=== PATIENT | female | born 1975 | race Two or more races ===

== ENCOUNTER → 2024-10-06 | Outpatient (CLI) | payer MEDICAID, SELFPAY ==
--- NOTE | 2024-10-06 08:45 | XR_ITS ---
Examination: Diagnostic digital mammography, bilateral Computer aided detection 3-D breast Tomosynthesis, bilateral Date and time of exam: 10/06/2024, 8:34 AM Comparisons: March 2021 through March 2024 Indications: Follow-up left focal asymmetry Technique: Nonmagnified MLO, CC views of the breasts to been obtained, reconstructed from 3-D Tomosynthesis images. R2 computer aided detection program utilized for evaluation of suspicious masses and/or abnormal calcifications. 3-D Tomosynthesis images obtained. Findings: There are scattered areas of fibroglandular density. Previously described focal asymmetry appears stable and benign. Otherwise, no evidence of abnormal masses or suspicious calcifications. Impression: BI-RADS category 2: Benign findings Recommend 1 year follow-up mammogram
== END | disposition home or self-care (01) ==
LOC: CDIM 08:17
PROVIDERS: Referring Provider Specialist; Visit Provider Specialist
DX: R92.323 Mammographic fibroglandular density, bilateral breasts (principal)
CPT/HCPCS: 77062; 77066; G0279